=== PATIENT | female | born 1980 | race Caucasian/White ===

== ENCOUNTER 2021-06-05 14:00 | Emergency (ER) | payer BC ==
[~2021-06-05] VITALS: Ht 172.7 cm; Wt 104.3 kg
--- NOTE | 2021-06-05 14:10 | NUR ---
Patient came in to the er c/o "tripped on a pothole and fell 05/31. It was pretty hard- knees hurt also. On room air, breathing evenly and unlabored. Connected to the monitor adn pulse ox. Kept comfortable, will continue to monitor accordingly.
--- NOTE | 2021-06-05 14:34 | NUR ---
Steven at bedside for x-ray.
--- NOTE | 2021-06-05 14:52 | NUR ---
NEWS ANCHOR AT BEDSIDE FOR DUPLEX SCAN.
[2021-06-05 16:36] VITALS: BP 118/88
--- NOTE | 2021-06-05 16:36 | NUR ---
Patient discharged to home in stable condition. Written and verbal after care instructions given. Patient verbalizes understanding of instruction.
== END 2021-06-05 16:36 | disposition home or self-care (01) ==
LOC: ER 14:08
DX: S80.01XA Contusion of right knee, initial encounter (principal); F41.9 Anxiety disorder, unspecified; Z90.49 Acquired absence of other specified parts of digestive tract; W01.0XXA Fall on same level from slipping, tripping and stumbling without subsequent striking against object, initial encounter; Y93.89 Activity, other specified; Y92.89 Other specified places as the place of occurrence of the external cause; Y99.8 Other external cause status
CPT/HCPCS: 73564-TC; 93971-TC